=== PATIENT | male | born 1970 | race Two or more races ===

== ENCOUNTER 2016-08-30 11:04 | Emergency (ER) | payer OTHER ==
[~2016-08-30] VITALS: Ht 177.8 cm; Wt 100.0 kg
[2016-08-30] MEDS ORDERED: SODIUM CHLORIDE 0.9% 1,000 ML IV ONE (11:16)
[2016-08-30] MEDS ORDERED: SODIUM CHLORIDE FLUSH 10ML SYR IVF ONE (11:30)
[2016-08-30] MEDS ORDERED: SODIUM CHLORIDE 0.9% 1,000ML IVBOLUS ONE (11:30)
[2016-08-30] MEDS ORDERED: MORPHINE SULFATE 4 MG/ML, 1ML ONE (11:39)
[2016-08-30 12:15] LABS: BLOOD UREA NITROGEN 8 mg/dL (7-18)
[2016-08-30 12:24] LABS: ACETAMINOPHEN < 2 mcg/mL (10-30); ASPARTATE AMINO TRANSFERASE 28 U/L (15-37)
[2016-08-30 13:24] LABS: DAU SCREEN DISCLAIMER
[2016-08-30 14:21] VITALS: BP 127/68
== END 2016-08-30 14:24 | disposition home or self-care (01) ==
LOC: ED 11:28
DX: F10.239 Alcohol dependence with withdrawal, unspecified (principal)
CPT/HCPCS: 36415; 70450; 71010; 80053; 80307; 80329; 82140; 85025; 93005; 96360; 99285; J7030; G0480

== ENCOUNTER 2020-07-30 06:42 | Inpatient (IN) | payer OTHER ==
[~2020-07-30] VITALS: Ht 172.7 cm; Wt 110.0 kg
--- NOTE | 2020-07-30 06:50 | NUR ---
THIS RN ASSUMING CARE OF PT. PER GUARD PT WAS LAST SEEN NORMAL AT 0400 DURING BREAKFAST. STATES PT MAYBE DETOXING. PT ATTACHED TO ALL MONITORS. VSS. JOHN.
[2020-07-30] MEDS ORDERED: NALOXONE 1 MG/ML, 2ML ONE (06:53)
--- NOTE | 2020-07-30 06:54 | NUR ---
Report given to CASSIE Dover. Patient care transferred.
[2020-07-30] MEDS ORDERED: SODIUM CHLORIDE FLUSH 10ML SYR IVF ONE (07:00)
[2020-07-30] MEDS ORDERED: NALOXONE 1 MG/ML, 2ML IVPush ONE (07:00)
--- NOTE | 2020-07-30 07:11 | NUR ---
PT MEDICATED PER EMAR WITH NARCAN. NO CHANGES SEEN BY THIS RN. PT IS BRIEFILY ROUSABLE WITH VERBAL AND PHYSICAL STIMULI. EYES OPEN, BILATERAL HAND GRAPS, BILATERAL TOE WIGGLES TO VERBAL COMMAND. NO TRACKING. GUARD AT BEDSIDE. PT ATTACHED TO ALL MONITORS. VSS. JOHN.
[2020-07-30 07:16] LABS: BASOPHILS % (AUTO) 1 % (0-1); EOSINOPHILS % (AUTO) 2 % (1-7); LYMPHOCYTES % (AUTO) 17 % (22-44); MEAN CORPUSCULAR HEMOGLOBIN 32.3 pg (27.5-34.5); MONOCYTES % (AUTO) 10 % (2-9); NEUTROPHILS % (AUTO) 70 % (42-75); PLATELET COUNT 343 x10^3/uL (130-400); RED BLOOD COUNT 5.09 x10^6/uL (4.38-5.82); RED CELL DISTRIBUTION WIDTH 13.7 % (9.4-14.8)
[2020-07-30 07:21] LABS: ALANINE AMINOTRANSFERASE 37 U/L (12-78); ALBUMIN 3.7 g/dL (3.4-5.0); ANION GAP 5 mmol/L (5-15); CALCIUM 8.8 mg/dL (8.5-10.1); CHLORIDE 105 mmol/L (98-107); MD NO
[2020-07-30 07:22] LABS: SALICYLATE LEVEL < 1.7 mg/dL (2.8-20.0)
[2020-07-30 07:23] LABS: ALKALINE PHOSPHATASE 108 U/L (45-117); BILIRUBIN,TOTAL 0.4 mg/dL (0.2-1.0); TOTAL PROTEIN 7.3 g/dL (6.4-8.2)
--- NOTE | 2020-07-30 07:26 | NUR ---
PT TO CT.
--- NOTE | 2020-07-30 07:37 | NUR ---
PT BACK FROM CT. WHEN PATIENTS ARM RAISED IN AIR THEN DROPPED, PT ABLE TO GUIDE IT DOWN TO PREVENT ARM FROM HITTING SELF. ATTACHED TO ALL MONITORS. VSS.
--- NOTE | 2020-07-30 07:57 | NUR ---
PT SLEPT THROUGH STRAIGHTCATH AND RECTAL TEMP.
[2020-07-30 08:04] LABS: MICROSCOPIC NOT IND
[2020-07-30 08:24] LABS: AMPHETAMINE SCREEN, URINE Positive (Negative); BARBITURATE SCREEN, URINE Negative (Negative); BENZODIAZEPINE SCREEN, URINE Positive (Negative); CANNABINOID SCREEN, URINE Negative (Negative); COCAINE SCREEN, URINE Negative (Negative); METHADONE SCREEN, URINE Negative (Negative); OPIATE SCREEN, URINE Negative (Negative)
--- NOTE | 2020-07-30 08:48 | NUR ---
PT TO MRI VIA GURNEY WITH GUARD AT BEDSIDE.
[2020-07-30] MEDS ORDERED: GADOTERATE 10 MMOL/20ML SYR ONE (09:16)
--- NOTE | 2020-07-30 09:31 | NUR ---
PT BACK FROM MRI
--- NOTE | 2020-07-30 09:41 | NUR ---
PT BEING RELEASED BY [facility]. PERSONAL BELONGINGS GIVEN TO THIS RN FROM GUARD. PERSONAL BELONGINGS PLACED IN PATIENT BELONGING BAG. TIED CLOSED AND PATIENT LABLES PLACED ON BAG.
--- NOTE | 2020-07-30 10:15 | NUR ---
PT OBSERVED TO OPEN EYES SPONTANOUSLY AND LOOKING AROUND ROOM.
--- NOTE | 2020-07-30 10:21 | NUR ---
PT AWAKE, EYES OPEN TRACKING THIS RN IN ROOM, MUMBLING AND MOANING TO SELF, ABLE TO STATE NAME. VSS.
[2020-07-30] MEDS ORDERED: SODIUM CHLORIDE FLUSH 10ML SYR IVF PRN (10:30)
--- NOTE | 2020-07-30 10:42 | NUR ---
Pt awake and alert. Slurring speech. Knows his name, unable to tell about the last thing he remembers. Pt informed he is at the hospital and able to tell the admitting provider when he came to bedside. Pt asking about his , given cell phone to call. Primary RN notified.
[2020-07-30] MEDS ORDERED: LORazepam 1MG TABLET PO PRN ×4 (11:00)
[2020-07-30] MEDS ORDERED: SENNA/DOCUSATE TABLET PO PRN (11:00)
[2020-07-30] MEDS ORDERED: ACETAMINOPHEN 325 MG TABLET PO PRN (11:00)
[2020-07-30] MEDS ORDERED: POTASSIUM CHLORIDE 20 MEQ, MAGNESIUM SULFATE 1 GM, FOLIC ACID 1 MG, THIAMINE 200 MG, MV... IV SCH ×2 (11:00→13:00)
[2020-07-30] MEDS ORDERED: ONDANSETRON ODT 4 MG PO PRN (11:00)
[2020-07-30] MEDS ORDERED: ONDANSETRON 2MG/ML, 2ML IVPush PRN (11:00)
[2020-07-30] MEDS ORDERED: LORazepam 2 MG/ML, 1ML IV PRN ×5 (11:00)
[2020-07-30] MEDS ORDERED: POLYETHYLENE GLYCOL 17 GM PACKET PO PRN (11:00)
[2020-07-30] MEDS ORDERED: LORazepam 0.5MG TABLET PO PRN (11:00)
--- NOTE | 2020-07-30 11:08 | NUR ---
REPORTS CALLED TO [facility].
[2020-07-30 12:19] VITALS: BP 138/89
[2020-07-31] MEDS ORDERED: FOLIC ACID 1 MG TABLET PO SCH (09:00)
== END 2020-07-30 13:22 | disposition left against medical advice (07) | DRG 100 ==
LOC: ED 07:07 → EDIP 10:19 → 4WST 12:07
PROVIDERS: ADMIT Family Medicine; ATTEND Family Medicine
DX: R56.9 Unspecified convulsions (principal); G93.41 Metabolic encephalopathy; F10.239 Alcohol dependence with withdrawal, unspecified; G89.29 Other chronic pain; M54.9 Dorsalgia, unspecified; E66.9 Obesity, unspecified; F15.90 Other stimulant use, unspecified, uncomplicated; I50.9 Heart failure, unspecified
CPT/HCPCS: 70450; 70553; 71045; 80053; 80299; 80307; 80320; 80329; 81003; 82140; 82962; 83880; 85025; 93005; 93306; G0378; A9575; G0480; J2310